=== PATIENT | female | born 1970 | race Two or more races ===

== ENCOUNTER → 2024-10-26 06:10 | Outpatient (CLI) | payer OTHER | END | disposition home or self-care (01) | LOC: LAB 06:10 | DX: E78.2 Mixed hyperlipidemia (principal); E55.9 Vitamin D deficiency, unspecified; I10 Essential (primary) hypertension; E03.9 Hypothyroidism, unspecified ==

== ENCOUNTER 2024-11-09 06:11 | Outpatient (CLI) | payer OTHER | END 2024-11-09 06:22 | disposition home or self-care (01) | LOC: LAB 06:11 | DX: N39.0 Urinary tract infection, site not specified (principal) ==

== ENCOUNTER 2025-02-14 12:53 | Outpatient (CLI) | payer OTHER | END 2025-02-14 13:01 | disposition home or self-care (01) | LOC: MAMO-SONO 12:53 → SONOGRAMA 12:53 → MAMO-SONO 13:01 | DX: R10.2 Pelvic and perineal pain (principal); N94.6 Dysmenorrhea, unspecified; N92.5 Other specified irregular menstruation; Z01.411 Encounter for gynecological examination (general) (routine) with abnormal findings; N63.10 Unspecified lump in the right breast, unspecified quadrant; Z12.39 Encounter for other screening for malignant neoplasm of breast ==

== ENCOUNTER 2025-02-15 06:47 | Outpatient (CLI) | payer OTHER ==
[2025-02-15 07:41] LABS: BASO % 1.2 % (0.1-1.2); EOS # 0.24 (0.04-0.54); EOS % 4.0 % (0.7-7.0); LYMPH # 1.53 (1.18-3.74); LYMPH % 25.7 % (19.3-53.1); MEAN PLATELET VOLUME 9.60 fl (9.4-12.4); MONO # 0.38 (0.24-0.82); MONO % 6.4 % (4.7-12.5); NEUT # 3.72 (1.56-6.13); NEUT % 62.5 % (34.0-71.1); RED CELL DISTRIBUTION WIDTH 14.6 % (11.6-14.4)
[2025-02-16 09:08] LABS: ESTRADIOL SERUM 6.7 pg/mL (.)
== END 2025-02-15 06:52 | disposition home or self-care (01) ==
LOC: LAB 06:47
DX: N92.5 Other specified irregular menstruation (principal); N94.6 Dysmenorrhea, unspecified; R10.2 Pelvic and perineal pain; Z01.411 Encounter for gynecological examination (general) (routine) with abnormal findings